=== PATIENT | male | born 1975 | race Caucasian/White ===

== ENCOUNTER 2024-04-27 09:07 | Day surgery (SDC) | payer OTHER ==
[~2024-04-27] VITALS: Ht 154.9 cm; Wt 97.3 kg
[~2024-04-27 09:07] MED LIST: ACETAMINOPHEN; ACYC800 PO; ALBU90I INH; ALBU90OI61 INH; AMLO5 PO; AMOCLA500 PO; Ativan1 MG SL; BUDE6HFA; Bactrim Ds Tab1 EACH PO; CEPH500; CEPH500 PO; CIPRO500 MG PO; CITA20; CPAP; CRUTCH4 USE; CYCL10 PO; DETROL PO; DIAZ5 PO; DILT120 PO; DOCU100 PO; DOXY100 PO; DULO30 PO; ERYT333ERA PO; ERYT500 PO; FLUO10 PO; FLUO20 PO; FLUSAL115; FLUT220OIA IH; Flomax0.4 MG PO; GABA300 PO; HYDACE10B PO; HYDACE5; HYDACE5 PO; IBUPROFEN; ISODIN10 PO; LANS15EC PO; LEVFLO500 PO; LEVO750 PO; LISI10 PO; LISI5 PO; Lactated Ringer's 1,000 ML IV ONE; METPRE4DP PO; METR500 PO; NAPR500 PO; Nasonex17 GM; ONDA4 PO; OXYACE5T PO; PANT20 PO; PANT40 PO; PERM5TC TOP; PHENA200 PO; PROM25 PO; Percocet 5-3251 EACH PO; Protonix40 MG PO; Pyridium200 MG PO; RANI150; REPA1 PO; ROPI1 PO; RXCLIN PO; RXHYDACE PO; RXTOBROPSO OP; SERT100 PO; SUCR1 PO; SULTRIDS PO; TIOT18 IH; TOBR.3OPSO OP; TRAM50 PO; VENL150ER; Zofran Odt8 MG SL; [UNRECOGNIZED DRUG - REMARK]; [UNRECOGNIZED DRUG - REMARK]; propofoL 50 ML IV ONE
[2024-04-27] MEDS ORDERED: HYDHCL25 (09:33)
[2024-04-27] MEDS ORDERED: Budeprion Xl300 MG (09:33)
[2024-04-27] MEDS ORDERED: DULO60 (09:33)
[2024-04-27] MEDS ORDERED: AMIT50 (09:33)
[2024-04-27] MEDS ORDERED: DULO30 (09:33)
[2024-04-27] MEDS ORDERED: METO25ER (09:34)
[2024-04-27] MEDS ORDERED: NITROGLYCERIN0.4 M3 (09:34)
[2024-04-27] MEDS ORDERED: ROPI1 (09:35)
[2024-04-27] MEDS ORDERED: PROM25 (09:35)
[2024-04-27] MEDS ORDERED: Lactated Ringer's 1,000 ML IV ONE (10:08)
[2024-04-27] MEDS ORDERED: Ipratropium/Albuterol SulF 2.5-0.5MG/3 ML Amp ONE (10:09)
--- NOTE | 2024-04-27 10:09 | NUR ---
04/27/24 1009 Juhi Cruz LOWER BACK PAIN RATING "6". CHRONIC.
[2024-04-27] MEDS ORDERED: Ondansetron HCl 2 MG / ML 2ML Vial ONE (11:29)
[2024-04-27 11:38] VITALS: BP 120/86
--- NOTE | 2024-04-27 15:53 | NUR ---
04/27/24 9362 Juhi Cruz S PT. DENIED ANY NAUSEA, THEN PT. BECAME NAUSEATED. PT. VERBALIZES THAT HE DOES THIS AT HOME. PT. HAS CYCLICAL VOMITING SYNDROME. PT. GIVEN CRACKERS & PT. VERBALIZED HIS NAUSEA WAS SETTLING DOWN, THEN NAUSEA STARTED COMING BACK. ORDER RECEIVED FROM DR. ARVIZU FOR ZOFRAN 4MG IV WHICH WAS GIVEN.([id number]) 3143 PT. BURPED & THEN PT. VERBALIZED HIS NAUSEA WAS EASING UP "BETTER." PT. VERBALIZED HE WAS READY TO GO HOME.
== END 2024-04-27 11:51 | disposition home or self-care (01) ==
LOC: ORSCSDS 09:07
DX: K21.9 Gastro-esophageal reflux disease without esophagitis (principal); R11.2 Nausea with vomiting, unspecified; Z86.0100 Personal history of colon polyps, unspecified; D12.4 Benign neoplasm of descending colon; K44.9 Diaphragmatic hernia without obstruction or gangrene; Z79.899 Other long term (current) drug therapy; Z87.891 Personal history of nicotine dependence; F98.8 Other specified behavioral and emotional disorders with onset usually occurring in childhood and adolescence
CPT/HCPCS: 82947; 88305; 88312; J2405; J2704; J7120